=== PATIENT | female | born 1945 | race Caucasian/White ===

== ENCOUNTER 2019-08-20 19:28 | Emergency (ER) | payer OTHER ==
[~2019-08-20] VITALS: Ht 160 cm; Wt 68.9 kg
[2019-08-20 19:40] VITALS: BP_SYST 131
--- NOTE | 2019-08-20 19:40 | NUR ---
Pt BIB BLS from [facility] in stable condition. private investigator surveillance with pt until room becomes available.
--- NOTE | 2019-08-20 19:51 | NUR ---
Chart sent with patient states she came from [place], and has been having coffee-ground emesis today during vomiting episodes.
--- NOTE | 2019-08-20 19:51 | NUR ---
Patient to ER bed 4 to gown for evaluation. Side rails up.
--- NOTE | 2019-08-20 19:51 | NUR ---
Pt brought in by ambulance. Pt awake, alert, oriented x4. Pt states that [facility], and has chief complaint of nausea and vomiting since this am. Pt states small amounts of blood in vomit. Pt states she has also had loose stools today, and general lethargy, with some dizziness after vomiting. Pt denies chest pain, shortness of breath, fever, abdominal pain at this time. Pt denies any other medical complaint at this time. Pt is speaking in full sentances, no vomiting upon arrival or triage. pt resting comfortably in ED bed, VSS. Pt given emesis basin in the event she feels like vomiting.
--- NOTE | 2019-08-20 20:20 | NUR ---
Dr. Westbrook at bedside.
[2019-08-20] MEDS ORDERED: NACL 0.9% 1,000 ML IV ONE (20:26)
--- NOTE | 2019-08-20 20:33 | NUR ---
Pt to CT via stretcher in stable condition.
--- NOTE | 2019-08-20 20:45 | NUR ---
Pt returned to bed
[2019-08-20 21:33] LABS: BASOPHILS # (AUTO) 0.1 K/uL (0.0-0.2); BASOPHILS % (AUTO) 0.5 % (0.0-2.0); EOSINOPHILS # (AUTO) 0.1 K/uL (0.0-0.4); EOSINOPHILS % (AUTO) 0.5 % (0.0-4.0); HEMATOCRIT 42.6 % (36-48); HEMOGLOBIN 13.7 g/dL (12.0-16.0); LYMPHOCYTES # (AUTO) 1.2 K/uL (1.0-5.5); LYMPHOCYTES % (AUTO) 8.6 % (20.5-51.5); MEAN CORPUSCULAR HEMOGLOBIN 28 pg (27-31); MEAN CORPUSCULAR HGB CONC 32 % (32-36); MEAN CORPUSCULAR VOLUME 88 fL (79.0-98.0); MONOCYTES # (AUTO) 0.8 K/uL (0.0-1.0); MONOCYTES % (AUTO) 5.5 % (1.7-9.3); NEUTROPHILS # (AUTO) 11.6 K/uL (1.8-7.7); NEUTROPHILS % (AUTO) 84.9 % (40.0-70.0); PLATELET COUNT (AUTO) 281 K/uL (130-430); RED BLOOD CELL COUNT(AUTO) 4.85 MIL/uL (4.2-6.2); RED CELL DISTRIBUTION WIDTH 16.4 % (9.0-15.0); WHITE BLOOD COUNT (AUTO) 13.7 K/uL (4.8-10.8)
--- NOTE | 2019-08-20 21:51 | NUR ---
Pt resting in ED bed. No acute distress noted. Pt denies nausea/vomiting at this time.
[2019-08-20 22:05] LABS: ANION GAP 8 (5-15); CALCIUM 9.8 mg/dL (8.4-11.0); CHLORIDE 98 mmol/L (98-107); CREATININE 1.19 mg/dL (0.55-1.30); GLUCOSE 206 mg/dL (70-99); POTASSIUM 4.1 mmol/L (3.5-5.1); SODIUM SERUM 135 mmol/L (136-145); UREA NITROGEN, BLOOD 51 mg/dL (8-21)
[2019-08-20 22:18] LABS: ALANINE AMINOTRANSFERASE 27 U/L (12-78); ASPARTATE AMINOTRANSFERASE 17 U/L (10-37); LIPASE 150 U/L (73-393); TOTAL BILIRUBIN 0.4 mg/dL (0.0-1.0)
--- NOTE | 2019-08-20 23:50 | NUR ---
Pt restin gin ED bed tolerating fluids and medication well. No episodes of vomiting
[2019-08-21 00:23] LABS: BILIRUBIN,URINE NEGATIVE (NEGATIVE); BLOOD, URINE NEGATIVE (NEGATIVE); CLARITY/URINE CLEAR (CLEAR); COLOR,URINE YELLOW (YELLOW); GLUCOSE,URINE 2+ (NEGATIVE); KETONES,URINE TRACE (NEGATIVE); LEUKOCYTE ESTERASE ,URINE TRACE (NEGATIVE); NITRITE, URINE NEGATIVE (NEGATIVE); PROTEIN URINE 2+ (NEGATIVE); UROBILINOGEN,URINE 0.2 (0.2-1.0)
[2019-08-21 00:50] LABS: BACTERIA,URINE MODERATE /HPF (None Seen); RBC,URINE 0-3 /HPF (0-3)
[2019-08-21] MEDS ORDERED: PANTOPRAZOLE SODIUM 40 MG/VIAL (PROTONIX) IVP ONE (01:00)
[2019-08-21] MEDS ORDERED: ONDANSETRON HCL 4 MG/2 ML VIAL IVP ONE (01:00)
--- NOTE | 2019-08-21 01:04 | NUR ---
Pt resting in ED bed with Sitter from [facility].
[2019-08-21 02:35] VITALS: BP_SYST 130
--- NOTE | 2019-08-21 02:35 | NUR ---
Patient given written and verbal discharge instructions and verbalizes understanding. ER MD discussed with patient the results and treatment provided. Patient in stable condition. ID arm band removed. IV catheter removed intact and dressing applied, no active bleeding. Rx of Zofran given. Patient educated on pain management and to follow up with PMD. Pain Scale 0/10. Care ambulance performing return trip. Opportunity for questions provided and answered. Medication side effect fact sheet provided.
--- NOTE | 2019-08-21 02:35 | NUR ---
Report Called to Diann @ [facility]– [place]
== END 2019-08-21 02:35 | disposition home or self-care (01) ==
LOC: SED 19:28
DX: N39.0 Urinary tract infection, site not specified (principal); R11.2 Nausea with vomiting, unspecified; E11.9 Type 2 diabetes mellitus without complications; Z90.49 Acquired absence of other specified parts of digestive tract
CPT/HCPCS: 36415; 74176; 80053; 81000; 83690; 85025; 87086; 96361; 96374; 96375; 99284; C9113; J2405; J7030